=== PATIENT | male | born 1950 | race Native Hawaiian/Other Pacific Islander ===

== ENCOUNTER 2016-06-28 17:13 | Outpatient (CLI) | payer OTHER | END 2016-06-28 19:19 | disposition home or self-care (01) | LOC: LAB 17:13 | DX: L02.01 Cutaneous abscess of face (principal) | CPT/HCPCS: 87070; 87205 ==

== ENCOUNTER 2019-02-12 09:45 | Outpatient (CLI) | payer OTHER | END 2019-02-12 23:59 | disposition home or self-care (01) | LOC: LABW 09:45 | DX: R19.7 Diarrhea, unspecified (principal) | CPT/HCPCS: 82272; 83630; 87015; 87045; 87324; 87328; 87329; 87449; 87899 ==

== ENCOUNTER 2019-05-14 17:18 | Inpatient (IN) | payer OTHER ==
[~2019-05-14] VITALS: Ht 180.3 cm; Wt 71.4 kg
[2019-05-14 17:25] VITALS: BP 205/99; TEMP 99.9
[2019-05-14 17:39] LABS: PLATELET COUNT 154 K/uL (142-355)
[2019-05-14 17:47] LABS: POTASSIUM 3.8 mmol/L (3.6-5.2); SODIUM 136 mmol/L (136-145)
[2019-05-14 18:00] VITALS: BP 163/96
[2019-05-14 18:00] LABS: PARTIAL THROMBOPLASTIN TIME 28.4 SECONDS (24.5-33.6)
[2019-05-14 18:43] VITALS: BP 157/84
[2019-05-14 19:15] VITALS: BP 161/79; TEMP 99
[2019-05-14 20:00] VITALS: BP 155/76
[2019-05-14 23:54] VITALS: BP 131/65; TEMP 97.9
[2019-05-15 01:54] VITALS: BP 150/65; TEMP 98; Ht 180.3 cm; Wt 71.4 kg
[2019-05-15 04:00] VITALS: BP 171/66; TEMP 97.7
[2019-05-15 05:05] LABS: PLATELET COUNT 137 K/uL (142-355)
[2019-05-15 05:14] LABS: POTASSIUM 4.5 mmol/L (3.6-5.2)
[2019-05-15] MEDS ORDERED: JANUMET1 TAB PO (07:21)
[2019-05-15] MEDS ORDERED: ASA LOW DOSE81 MG PO (07:23)
[2019-05-15] MEDS ORDERED: DEXILANT60 M1 PO (07:23)
[2019-05-15] MEDS ORDERED: BYSTOLIC10 MG PO (07:23)
[2019-05-15] MEDS ORDERED: RANO1000T PO (07:24)
[2019-05-15] MEDS ORDERED: RAMI10CA PO (07:24)
[2019-05-15] MEDS ORDERED: CLOP75TA2 PO (07:25)
[2019-05-15] MEDS ORDERED: NITROSTAT0.4 MG SL (07:28)
[2019-05-15] MEDS ORDERED: AZIT250T3 PO (07:30)
[2019-05-15] MEDS ORDERED: OSEL75CA PO (07:31)
[2019-05-15] MEDS ORDERED: ANORO ELLIPTA 61 AER INH (07:46)
[2019-05-15 08:00] VITALS: BP 168/68; TEMP 97.7
[2019-05-15 12:00] VITALS: BP 144/72; TEMP 97.4
[2019-05-15 16:00] VITALS: BP 150/76; TEMP 97.6
[2019-05-15 19:47] VITALS: BP 129/72; TEMP 97.8
[2019-05-16] VITALS: BP 111/62; TEMP 97.4
[2019-05-16 04:00] VITALS: BP 135/60; TEMP 98.1
[2019-05-16 05:26] LABS: PLATELET COUNT 136 K/uL (142-355)
[2019-05-16 05:35] LABS: POTASSIUM 4.5 mmol/L (3.6-5.2)
[2019-05-16 08:00] VITALS: BP 146/71; TEMP 97.4
== END 2019-05-16 09:51 | disposition home or self-care (01) | DRG 191 ==
LOC: ED 17:18 → MED/SURG 19:35
PROVIDERS: Hospitalist; ADMIT Family Medicine
DX: J44.1 Chronic obstructive pulmonary disease with (acute) exacerbation (principal); D61.818 Other pancytopenia; E87.1 Hypo-osmolality and hyponatremia; N17.8 Other acute kidney failure; I25.10 Atherosclerotic heart disease of native coronary artery without angina pectoris; I10 Essential (primary) hypertension; I50.9 Heart failure, unspecified; E11.9 Type 2 diabetes mellitus without complications; K21.9 Gastro-esophageal reflux disease without esophagitis; K59.00 Constipation, unspecified
CPT/HCPCS: 36415; 36600; 80048; 80053; 82550; 82805; 82948; 83880; 84484; 85027; 85379; 85610; 85730; 93005; 94640; 94664; 94760; 96374; 99220; 99284; G0378; J1815; J2930

== ENCOUNTER 2019-05-22 11:28 | Outpatient (CLI) | payer OTHER ==
[~2019-05-22 11:28] MED LIST: ANORO ELLIPTA 61 AER INH; ASA LOW DOSE81 MG PO; AZIT250T3 PO; BYSTOLIC10 MG PO; CLOP75TA2 PO; DEXILANT60 M1 PO; JANUMET1 TAB PO; NITROSTAT0.4 MG SL; OSEL75CA PO; RAMI10CA PO; RANO1000T PO
== END 2019-05-22 20:06 | disposition home or self-care (01) ==
LOC: LAB 11:28
DX: R05 Cough (principal); J44.9 Chronic obstructive pulmonary disease, unspecified
CPT/HCPCS: 87070; 87205

== ENCOUNTER 2021-03-29 09:12 | Outpatient (CLI) | payer OTHER | END 2021-03-29 19:31 | disposition home or self-care (01) | LOC: US 09:12 | PROVIDERS: ATTEND Internal Medicine Cardiovascular Disease | DX: R09.89 Other specified symptoms and signs involving the circulatory and respiratory systems (principal) ==

== ENCOUNTER 2021-07-01 10:46 | Outpatient (CLI) | payer OTHER ==
[2021-07-01 12:10] LABS: PLATELET COUNT 157 K/uL (142-355)
[2021-07-01 12:38] LABS: POTASSIUM 4.6 mmol/L (3.6-5.2)
== END 2021-07-01 19:09 | disposition home or self-care (01) ==
LOC: LABW 10:46
PROVIDERS: ATTEND Internal Medicine
DX: U07.1 COVID-19 (principal)
CPT/HCPCS: 36415; 80053; 85027; 85379; 86140

== ENCOUNTER 2022-05-29 09:36 | Emergency (ER) | payer OTHER ==
[~2022-05-29] VITALS: Ht 180.3 cm; Wt 92.5 kg
[2022-05-29 09:36] VITALS: TEMP 98.4
[2022-05-29 10:10] LABS: PLATELET COUNT 210 K/uL (142-355)
[2022-05-29 10:12] LABS: POTASSIUM 5.2 mmol/L (3.6-5.2)
[2022-05-29 14:00] VITALS: BP 138/62
== END 2022-05-29 14:15 | disposition short-term general hospital (02) ==
LOC: ED 09:36
PROVIDERS: Family Medicine
DX: U07.1 COVID-19 (principal); I24.9 Acute ischemic heart disease, unspecified; J44.9 Chronic obstructive pulmonary disease, unspecified; R19.7 Diarrhea, unspecified; Z79.899 Other long term (current) drug therapy
CPT/HCPCS: 36415; 80053; 80307; 81002; 84484; 85027; 87502; 87635; 93005; 94664; 96360; 96361; 96365; 96372; 96375; 99284; J0696; J1650; J2930; U0003

== ENCOUNTER 2022-12-14 08:12 | Outpatient (CLI) | payer OTHER ==
[2022-12-14 08:45] LABS: POTASSIUM 4.2 mmol/L (3.6-5.2)
== END 2022-12-14 20:06 | disposition home or self-care (01) ==
LOC: LABW 08:12
PROVIDERS: ATTEND Internal Medicine Cardiovascular Disease
DX: Z79.899 Other long term (current) drug therapy (principal); I50.9 Heart failure, unspecified
CPT/HCPCS: 36415; 80048; 83880